=== PATIENT | male | born 2000 | race Caucasian/White ===

== ENCOUNTER 2022-03-18 03:50 | Emergency (ER) | payer OTHER ==
[~2022-03-18] VITALS: Ht 180.3 cm; Wt 70.0 kg
[2022-03-18 04:22] VITALS: BP 144/72
== END 2022-03-18 04:22 ==
LOC: ER 04:09
DX: R68.89 Other general symptoms and signs (principal); Z59.00 Homelessness unspecified; Z00.00 Encounter for general adult medical examination without abnormal findings
CPT/HCPCS: 99283

== ENCOUNTER 2025-03-28 17:13 | Emergency (ER) | payer OTHER, MEDICAID ==
[~2025-03-28] VITALS: Ht 167.6 cm; Wt 75.0 kg
[~2025-03-28 17:13] MED LIST: IBUP-1455 MT; SULF1TAB48 MT
[2025-03-28 17:19] VITALS: O2SAT 100
[2025-03-28] MEDS: HYDROCODONE/ACETAMINOPHEN 5/325MG TABLET PO ONE (18:45)
[2025-03-28] MEDS ORDERED: IBUP-1455 MT (19:09)
[2025-03-28] MEDS ORDERED: CLIN-194 MT (19:09)
[2025-03-28] MEDS ORDERED: TOPUD MT (19:09)
[2025-03-28] MEDS ORDERED: [UNRECOGNIZED DRUG - CODE] BC (19:09)
[2025-03-28] MEDS: CLINDAMYCIN HCL 150MG CAPSULE PO SCH (19:32)
[2025-03-28 19:33] VITALS: BP 147/96; PULSE 71; RESP 16; TEMP 36.3; O2SAT 96
== END 2025-03-28 19:36 | disposition home or self-care (01) ==
LOC: ER 17:26
DX: K04.7 Periapical abscess without sinus (principal); Z88.0 Allergy status to penicillin; Z79.899 Other long term (current) drug therapy
CPT/HCPCS: 99283